=== PATIENT | female | born 1960 | race Caucasian/White ===

== ENCOUNTER 2017-05-11 09:47 | Emergency (ER) | payer OTHER ==
[2017-05-11 10:07] VITALS: BP 138/77
--- NOTE | 2017-05-11 10:24 | UC ---
Respiratory Complaint HPI - HPI Summary HPI Summary: 57F presents with cough for the past 5 days. She states she had a viral illness in [place] 3 weeks that resolved. The got back from vacation and she developed this illness. She admits to occasionally SOB. She denies any swelling or pain in her legs. She denies any chest pain. She denies any sore throat. She admits to sinus congestion and ear pressure. She admits to subjective fevers. - History of Current Complaint Chief Complaint: UCRespiratory Stated Complaint: COUGH,FEVER Time Seen by Provider: 05/11/17 10:13 Hx Last Menstrual Period: n/a Pain Intensity: 0 - Allergies/Home Medications Allergies/Adverse Reactions: Allergies Allergy/AdvReac Type Severity Reaction Status Date / Time Latex Allergy Mild Itching Verified 05/11/17 10:07 Penicillins Allergy Mild Rash Verified 05/11/17 10:07 Codeine AdvReac Severe "Put me Verified 05/11/17 10:07 out" Home Medications: Home Medications Cetirizine* [ZyrTEC 10 MG TAB*] 10 mg PO DAILY 05/11/17 [History Confirmed 05/11] Estradiol VAGINAL TAB(NF) [Vagifem(NF)] 10 mcg VA SEE INSTRUCTIONS 05/11/17 [ History Confirmed 05/11/17] PMH/Surg Hx/FS Hx/Imm Hx Cardiovascular History: Hypertension Respiratory History: Other Other Respiratory History: no asthma or COPD - Surgical History Surgical History: Yes Surgery Procedure, Year, and Place: hysterectomy; c4 c5 [id number], fusion and plating; laparoscopy 1988 - Family History Known Family History: Positive: Hypertension - Social History Alcohol Use: None Substance Use Type: None Smoking Status (MU): Never Smoked Tobacco Review of Systems Constitutional: Negative ENT: Nasal Discharge Respiratory: Shortness Of Breath, Cough All Other Systems Reviewed And Are Negative: Yes Physical Exam Triage Information Reviewed: Yes Appearance: Well-Appearing Vital Signs: Initial Vital Signs Temp 98.2 F 05/11/17 10:00 Pulse 82 05/11/17 10:00 Resp 18 05/11/17 10:00 BP 138/77 05/11/17 10:00 Pulse Ox 100 05/11/17 10:00 Vital Signs Reviewed: Yes Eyes: Positive: Conjunctiva Clear ENT: Positive: Normal ENT inspection, Pharynx normal, TMs normal - fluid behind ear Neck: Positive: Supple, Nontender, No Lymphadenopathy Respiratory: Positive: Lungs clear, Normal breath sounds Cardiovascular: Positive: RRR Abdomen Description: Positive: Nontender, Soft Bowel Sounds: Positive: Present Musculoskeletal Exam: Normal Neurological Exam: Normal Psychological Exam: Normal Skin Exam: Normal UC Diagnostic Evaluation - Laboratory O2 Sat by Pulse Oximetry: 100 Respiratory Course/Dx - Course Course Of Treatment: 57F presents with cough for the past 5 days. She states she had a viral illness in [facility] for 3 weeks that resolved. The got back from vacation and she developed this illness. She admits to occasionally SOB. She denies any swelling or pain in her legs. She denies any chest pain. She denies any sore throat. She admits to sinus congestion and ear pressure. She admits to subjective fevers. on exam lungs CTA. chest xray normal. medication reviewed. patient has diagnosis of HTN so can follow up with primary about blood pressure. will give inhaler for SOB and warned if anything changes to go to ED. patient understand and and agrees with plan. - Differential Dx/Diagnosis Differential Diagnosis/HQI/PQRI: Bronchitis, Laryngitis, Lower Resp Infection Provider Diagnoses: upper respiratory infection Discharge - Discharge Plan Condition: Good Disposition: HOME Prescriptions: Albuterol HFA INHALER* [Ventolin HFA Inhaler*] 1 puff INH Q4H PRN #1 mdi PRN Reason: Sob/Wheezing Patient Education Materials: Upper Respiratory Infection (ED) Referrals: [facility] PH[facility]ICIAN REFERRAL [Outside] Non Staff,Doctor [Primary Care Provider] - Additional Instructions: Use inhaler one puff every 4 hours for cough as needed Use humidifier or place warm bowls of water around the room for cough Take Tylenol for pain/fever every 6 hours Establish care with primary to follow up Return to ED if develop any new or worsening symptoms
--- NOTE | 2017-05-11 10:34 | RAD ---
HISTORY: Cough COMPARISONS: November 22, 2012 VIEWS: 4: Frontal dual-energy and lateral views of the chest. FINDINGS: CARDIOMEDIASTINAL SILHOUETTE: The cardiomediastinal silhouette is normal. JOSÉ MIGUEL: The josé miguel are normal. PLEURA: The costophrenic angles are sharp. No pleural abnormalities are noted. LUNG PARENCHYMA: There are calcified granulomas of the right lung. ABDOMEN: The upper abdomen is clear. There is no subphrenic gas. BONES AND SOFT TISSUES: The patient is status post anterior cervical fusion. OTHER: None. IMPRESSION: NO ACTIVE CARDIOPULMONARY DISEASE.
== END 2017-05-11 11:02 | disposition home or self-care (01) ==
LOC: UCCORT 09:47
DX: J06.9 Acute upper respiratory infection, unspecified (principal)
CPT/HCPCS: 71046; 99202; G0463

== ENCOUNTER 2017-06-28 09:17 | Emergency (ER) | payer OTHER ==
[2017-06-28 09:37] VITALS: BP 131/72
--- NOTE | 2017-06-28 09:55 | UC ---
Ear Complaint HPI - HPI Summary HPI Summary: RIGHT EAR PAIN X 3 DAYS RIGHT SIDE NECK PAIN / SWOLLEN NECK GLANDS + NASAL CONGESTION , SORE THROAT, NO FEVER, NO CHILLS, NO COUGH - History of Current Complaint Chief Complaint: UCEar Stated Complaint: RIGHT EAR/JAW PAIN Time Seen by Provider: 06/28/17 09:44 Hx Obtained From: Patient Hx Last Menstrual Period: n/a Onset/Duration: Gradual Onset, Lasting Days - 3, Still Present Severity Initially: Moderate Severity Currently: Moderate Pain Intensity: 7 Aggravating Factors: Nothing Alleviating Factors: Nothing Associated Signs/Symptoms: Positive: URI Symptoms. Negative: Discharge, Hearing Loss, Foreign Body Sensation, Trauma to Ear - Allergies/Home Medications Allergies/Adverse Reactions: Allergies Allergy/AdvReac Type Severity Reaction Status Date / Time Penicillins Allergy Intermediate Itching Verified 06/28/17 09:37 latex Allergy Itching Verified 06/28/17 09:37 codeine AdvReac Intermediate "puts me Verified 06/28/17 09:37 out" Home Medications: Home Medications Calcium Carbonate/Vitamin D2 [Oyster Shell Calcium-Vit D Tab] 1 tab PO BID 06/28 [History Confirmed 06/28/17] PMH/Surg Hx/FS Hx/Imm Hx Cardiovascular History: Hypertension - Surgical History Surgical History: Yes Surgery Procedure, Year, and Place: hysterectomy; c4 c5 [id number], fusion and plating; laparoscopy 1988 - Family History Known Family History: Positive: Hypertension - Social History Alcohol Use: None Substance Use Type: None Smoking Status (MU): Never Smoked Tobacco Review of Systems Constitutional: Negative Skin: Negative Eyes: Negative ENT: Sore Throat, Ear Ache, Nasal Discharge Respiratory: Negative Cardiovascular: Negative Gastrointestinal: Negative Genitourinary: Negative Motor: Negative Neurovascular: Negative Is Patient Immunocompromised?: No All Other Systems Reviewed And Are Negative: Yes Physical Exam Triage Information Reviewed: Yes Appearance: Well-Appearing, No Pain Distress, Well-Nourished Vital Signs: Initial Vital Signs Temp 97.8 F 06/28/17 09:26 Pulse 75 06/28/17 09:26 Resp 18 06/28/17 09:26 BP 131/72 06/28/17 09:26 Pulse Ox 99 06/28/17 09:26 Vital Signs Reviewed: Yes Eye Exam: Normal Eyes: Positive: Conjunctiva Clear ENT: Positive: Normal ENT inspection, Hearing grossly normal, Pharynx normal, TMs normal. Negative: TM bulging, TM dull, TM red, Tonsillar swelling, Tonsillar exudate Neck: Positive: Supple, Tenderness @, Enlarged Nodes @ Respiratory Exam: Normal Respiratory: Positive: Chest non-tender, Lungs clear, Normal breath sounds Cardiovascular: Positive: RRR, No Murmur, Pulses Normal Skin Exam: Normal Ear Complaint Course/Dx - Differential Dx/Diagnosis Provider Diagnoses: CERVICAL LYMPHADENOPATHY Discharge - Discharge Plan Condition: Stable Disposition: HOME Patient Education Materials: Lymphadenopathy (ED) Referrals: Gordon Gilliland MD [Primary Care Provider] - If Needed Additional Instructions: CONTINUE WITH REST, IBUPROFEN 400 MG EVERY 6 HRS NEEDED FOR PAIN AND INFLAMMATION FOLLOW UP NEEDED
== END 2017-06-28 09:59 | disposition home or self-care (01) ==
LOC: UCCORT 09:17
DX: R59.1 Generalized enlarged lymph nodes (principal); Z88.5 Allergy status to narcotic agent; Z88.0 Allergy status to penicillin; Z91.040 Latex allergy status
CPT/HCPCS: 99211; G0463

== ENCOUNTER 2017-09-08 15:26 | Emergency (ER) | payer OTHER ==
[2017-09-08 16:14] VITALS: BP 156/76
--- NOTE | 2017-09-08 16:43 | UC ---
Respiratory Complaint HPI - HPI Summary HPI Summary: 57 yo WF c/o URI sx of cough nasal congestion , low grade fevers x 5 days but now felt worsening right maxillary sinus pressure since yesterday, daughter also sick with sore throat and bronchitic sx w/ cough and fevers - History of Current Complaint Chief Complaint: UCGeneralIllness Stated Complaint: COUGH/CONGESTION Time Seen by Provider: 09/08/17 16:18 Hx Obtained From: Patient Hx Last Menstrual Period: n/a Onset/Duration: Sudden Onset Severity Initially: Moderate Severity Currently: Moderate Pain Intensity: 0 Character: Cough: Productive Aggravating Factors: Allergens Associated Signs And Symptoms: Positive: Negative - Allergies/Home Medications Allergies/Adverse Reactions: Allergies Allergy/AdvReac Type Severity Reaction Status Date / Time Penicillins Allergy Intermediate Itching Verified 09/08/17 16:12 latex Allergy Itching Verified 09/08/17 16:12 codeine AdvReac Intermediate "puts me Verified 09/08/17 16:12 out" Home Medications: Home Medications Multivitamins/Minerals TAB* [Theragran/minerals TAB*] 1 tab PO DAILY 09/08/17 [ History Confirmed 09/08/17] [place]-3 Fatty Acids/Fish Oil [[place] 3 1,000 mg Softgel] 1 cap PO DAILY 09/08/17 [History Confirmed 09/08/17] PMH/Surg Hx/FS Hx/Imm Hx - Additional Past Medical History Additional PMH: sinusitis Previously Healthy: Yes - Surgical History Surgical History: Yes Surgery Procedure, Year, and Place: hysterectomy; c4 c5 [id number], fusion and plating; laparoscopy 1988; right radial head fracture and ORIF - Family History Known Family History: Positive: Hypertension - Social History Alcohol Use: None Substance Use Type: None Smoking Status (MU): Never Smoked Tobacco Review of Systems Constitutional: Fever Skin: Negative Eyes: Negative ENT: Dental Pain - upper teeth, Sore Throat, Nasal Discharge, Sinus Congestion, Sinus Pain/Tenderness Respiratory: Cough Cardiovascular: Negative Gastrointestinal: Negative Genitourinary: Negative Motor: Negative Neurovascular: Negative Musculoskeletal: Negative Neurological: Negative Psychological: Negative All Other Systems Reviewed And Are Negative: Yes Physical Exam Triage Information Reviewed: Yes Appearance: No Pain Distress Vital Signs: Initial Vital Signs Temp 36.7 C 09/08/17 16:08 Pulse 73 09/08/17 16:08 Resp 14 09/08/17 16:08 BP 156/76 09/08/17 16:08 Pulse Ox 98 09/08/17 16:08 Eye Exam: Normal ENT: Positive: Nasal congestion, Nasal drainage, Sinus tenderness - right maxilla Dental Exam: Normal Neck exam: Normal Neck: Positive: 1 Respiratory Exam: Normal Cardiovascular Exam: Normal Abdominal Exam: Normal Musculoskeletal Exam: Normal Neurological Exam: Normal Psychological Exam: Normal Skin Exam: Normal UC Diagnostic Evaluation - Laboratory O2 Sat by Pulse Oximetry: 98 Respiratory Course/Dx - Differential Dx/Diagnosis Provider Diagnoses: right maxillary sinus infection. cough Discharge - Sign-Out/Discharge Documenting (check all that apply): Discharge/Admit/Transfer - Discharge Plan Condition: Stable Disposition: HOME Prescriptions: Azithromycin TAB* [Zithromax TAB (Z-CHESTER) 250 mg #6 tabs] 2 tab PO .TODAY, THEN 1 DAILY #1 chester Patient Education Materials: Sinusitis (ED) Referrals: Gordon Gilliland MD [Primary Care Provider] - - Billing Disposition and Condition Condition: STABLE Disposition: HOME
== END 2017-09-08 17:25 | disposition home or self-care (01) ==
LOC: UCCORT 15:26
DX: J32.0 Chronic maxillary sinusitis (principal); R05 Cough; Z88.5 Allergy status to narcotic agent; Z88.0 Allergy status to penicillin; Z91.040 Latex allergy status
CPT/HCPCS: 99212; G0463

== ENCOUNTER 2017-09-17 15:11 | Emergency (ER) | payer OTHER ==
[2017-09-17 15:53] VITALS: BP 145/70
--- NOTE | 2017-09-17 16:23 | UC ---
Eye Complaint HPI - HPI Summary HPI Summary: Pt c/o right eye pain, that began 2 days ago after removing contact lens. Pt has not been wearing contacts since onset of pain but has noted increase eye pain and photosensitivity. Denies vision changes. - History of Current Complaint Chief Complaint: UCEye Stated Complaint: EYE IRRITATION Time Seen by Provider: 09/17/17 15:52 Hx Obtained From: Patient Hx Last Menstrual Period: n/a ?: No Onset/Duration: Sudden Onset, Lasting Days, Still Present, Worse Since - onset Timing: Constant Severity Initially: Mild Severity Currently: Moderate Pain Intensity: 7 Location of Injury: Conjunctiva Character: Sharp, Dull Aggravating Factor(s): Contact Lens Alleviating Factor(s): Darkness Associated Signs And Symptoms: Positive: Photophobia, Drainage (Clear) - Risk Factors Penetrating Injury Risk Factor: Negative Globe Rupture Risk Factors: Negative Acute Glaucoma Risk Factors: Negative Optic Artery Occlusion Risk Factors: Negative - Allergies/Home Medications Allergies/Adverse Reactions: Allergies Allergy/AdvReac Type Severity Reaction Status Date / Time Penicillins Allergy Intermediate Itching Verified 09/08/17 16:12 latex Allergy Itching Verified 09/08/17 16:12 codeine AdvReac Intermediate "puts me Verified 09/08/17 16:12 out" PMH/Surg Hx/FS Hx/Imm Hx Previously Healthy: Yes - Surgical History Surgical History: Yes Surgery Procedure, Year, and Place: hysterectomy; c4 c5 [id number], fusion and plating C5-C6; laparoscopy 1988; right radial head fracture and ORIF - Family History Known Family History: Positive: Hypertension - Social History Occupation: Works From/At Home Lives: With Family Alcohol Use: None Substance Use Type: None Smoking Status (MU): Never Smoked Tobacco Have You Smoked in the Last Year: No Review of Systems Constitutional: Negative Skin: Negative Eyes: Photophobia ENT: Negative Respiratory: Negative Cardiovascular: Negative Gastrointestinal: Negative Genitourinary: Negative Motor: Negative Neurovascular: Negative Musculoskeletal: Negative Neurological: Negative Psychological: Negative Is Patient Immunocompromised?: No All Other Systems Reviewed And Are Negative: Yes Physical Exam Triage Information Reviewed: Yes Appearance: Well-Appearing Vital Signs: Initial Vital Signs Temp 97.3 F 09/17/17 15:46 Pulse 81 09/17/17 15:46 Resp 18 09/17/17 15:46 BP 145/70 09/17/17 15:46 Pulse Ox 99 09/17/17 15:46 Vital Signs Reviewed: Yes Eyes: Positive: Other: - at 12 oclock postion, ~ 1mm discolored, opaque circular area. ENT Exam: Normal Neck exam: Normal Respiratory Exam: Normal Musculoskeletal Exam: Normal Neurological Exam: Normal Psychological Exam: Normal Skin Exam: Normal Eye Complaint Course/Dx - Course Course Of Treatment: I spoke to Dr. Dewitt's office and they do not accpet the pt 's insurance I called Dr. Smith's office and pt has appointment for 11:45 am on 09/18/17. Pt was advised to place drops every 2 hours an duse eye ointment prior to bed. Pt was instructed that if symptoms worsen to go to [facility] for immediate evaluation and treatment. - Differential Dx/Diagnosis Differential Diagnosis/HQI/PQRI: Conjunctivitis, Corneal Abrasion, Other - corneal ulceration Provider Diagnoses: right eye pain. possible corneal ulceration Discharge - Sign-Out/Discharge Documenting (check all that apply): Discharge/Admit/Transfer - Discharge Plan Condition: Stable Disposition: HOME Prescriptions: Ofloxacin 0.3%(Ophth)(Nf) [Ocuflox OPTH 0.3%(NF)] 4 drop RIGHT EYE Q2H #1 btl Tobramycin 0.3% OPHTH.OINT* [Tobrex 0.3% OPHTH.OINT*] 1 applic RIGHT EYE BEDTIME #1 tube Patient Education Materials: Eye Pain (ED) Referrals: Beau Smith MD [Medical Doctor] - 09/18/17 11:45 am Gordon Gilliland MD [Primary Care Provider] - If Needed Additional Instructions: Please follow up with Dr. Smith tomorrow, 09/18/17 at 11:45 am . If your symptoms worsen, please seek care immediately at the closest Emergency Room. - Billing Disposition and Condition Condition: STABLE Disposition: Home
== END 2017-09-17 16:42 | disposition home or self-care (01) ==
LOC: UCCORT 15:11
DX: H57.11 Ocular pain, right eye (principal); Z88.5 Allergy status to narcotic agent; Z88.0 Allergy status to penicillin; Z91.040 Latex allergy status
CPT/HCPCS: 99212; G0463

== ENCOUNTER 2017-10-22 08:58 | Emergency (ER) | payer OTHER ==
[2017-10-22 09:29] VITALS: BP 146/69
--- NOTE | 2017-10-22 09:45 | UC ---
Dizzy HPI HPI Summary: Patient reports feeling dizzy since Sunday-3 days ago. She states that she often feels this way whenever she takes a cruise and exits the [place]. She describes it as a sense of being off balance. Yesterday she felt a little nausea with dizziness as well. She states that at onset she had a little bit of a pressure type headache which was relieved with Motrin. She notes that this is a typical type of headache for her. It was not abrupt or worst headache. Her symptoms worsen with change in position and she gets relief with rest. She denies any change in her vision and speech. She denies any numbness tingling or weakness to her arms or legs. She has no chest pain or short of breath. She does note that when she gets this way it makes her anxiety worse as well. - History Of Current Complaint Chief Complaint: UCDizziness Stated Complaint: DIZZY/NAUSEA *3DAYS Time Seen by Provider: 10/22/17 09:15 Hx Last Menstrual Period: 2009 Pain Intensity: 14 Associated Signs And Symptoms: Positive: Nausea. Negative: Tinnitus, Chest Pain , SOB, Palpitations, Visual Changes - Allergies/Home Medications Allergies/Adverse Reactions: Allergies Allergy/AdvReac Type Severity Reaction Status Date / Time Penicillins Allergy Intermediate Itching Verified 10/22/17 09:29 latex Allergy Itching Verified 10/22/17 09:29 codeine AdvReac Intermediate "puts me Verified 10/22/17 09:29 out" Home Medications: Home Medications Albuterol HFA INHALER* [Ventolin HFA Inhaler*] 1 - 2 puff INH Q4H PRN 10/22/17 [ History Confirmed 10/22/17] Omeprazole CAP* [Prilosec CAP* 20 MG] 20 mg PO DAILY 10/22/17 [History Confirmed 10/22/17] PMH/Surg Hx/FS Hx/Imm Hx - Additional Past Medical History Additional PMH: allergies Cardiovascular History: Hypertension Respiratory History: Asthma GI/ History: Gastroesophageal Reflux Psychological History: Anxiety - Surgical History Surgical History: Yes Surgery Procedure, Year, and Place: hysterectomy; c4 c5 [id number], fusion and plating C5-C6; laparoscopy 1988; right radial head fracture and ORIF - Family History Known Family History: Positive: Hypertension - Social History Occupation: Unemployed Lives: With Family Alcohol Use: None Substance Use Type: None Smoking Status (MU): Never Smoked Tobacco Have You Smoked in the Last Year: No - Immunization History Vaccination Up to Date: Yes Review of Systems Constitutional: Negative Skin: Negative Eyes: Negative ENT: Negative Respiratory: Negative Cardiovascular: Negative Gastrointestinal: Nausea Genitourinary: Negative Motor: Negative Neurovascular: Negative Musculoskeletal: Negative Neurological: Headache Psychological: Anxious Is Patient Immunocompromised?: No All Other Systems Reviewed And Are Negative: Yes Physical Exam Triage Information Reviewed: Yes Appearance: Well-Appearing Vital Signs: Initial Vital Signs Temp 99.1 F 10/22/17 09:16 Pulse 65 10/22/17 09:16 Resp 12 10/22/17 09:16 BP 146/69 10/22/17 09:16 Pulse Ox 100 10/22/17 09:16 Vital Signs Reviewed: Yes Eyes: Positive: Conjunctiva Clear, Other: - PERRL, EOMI. ENT: Positive: Pharynx normal, TMs normal. Negative: Nasal congestion, Nasal drainage Neck: Positive: Supple, Nontender, No Lymphadenopathy, Other: - No carotid bruits. Negative: Nuchal Rigidity Respiratory: Positive: Lungs clear, Normal breath sounds Cardiovascular: Positive: RRR, No Murmur, Pulses Normal Abdomen Description: Positive: Nontender, No Organomegaly, Soft Bowel Sounds: Positive: Present Musculoskeletal: Positive: ROM Intact Neurological: Positive: Alert, Other: - Patient is alert and oriented 3. Cranial nerves II through XII are grossly intact. She has 5 out of 5 strength and 2+ reflexes 4. She is normal steady gait. Negative Romberg and negative pronator drift. She heel toe walks with ease. Position change exacerbates her dizziness. Psychological: Positive: Age Appropriate Behavior Skin Exam: Normal Dizzy Course/Dx - Course Course Of Treatment: Patient describes a headache during this visit; however, it is a typical headache for her and resolved with Motrin. It was not abrupt or worse. Her neuro exam during this visit is reassuring. Nothing on her history or physical exam suggests cardiac pathology. She describes a history of similar episodes of dizziness in the past primarily related to getting off her shift. Nothing here is concerning for intracranial bleed or central vertigo. History and physical exam supports peripheral vertigo. We'll prescribe meclizine and close follow-up with the primary care provider for recheck. - Differential Dx/Diagnosis Provider Diagnoses: Dizziness Discharge - Sign-Out/Discharge Documenting (check all that apply): Discharge/Admit/Transfer - Discharge Plan Condition: Stable Disposition: HOME Prescriptions: Meclizine TAB* [Antivert 12.5 TAB*] 25 mg PO Q6H PRN #15 tab PRN Reason: Dizziness Patient Education Materials: Dizziness (ED) Referrals: Gordon Gilliland MD [Primary Care Provider] - 3 Days - Billing Disposition and Condition Condition: STABLE Disposition: Home
== END 2017-10-22 09:56 | disposition home or self-care (01) ==
LOC: UCCORT 08:58
DX: R42 Dizziness and giddiness (principal); Z88.0 Allergy status to penicillin; Z88.5 Allergy status to narcotic agent; J45.909 Unspecified asthma, uncomplicated; K21.9 Gastro-esophageal reflux disease without esophagitis
CPT/HCPCS: 99212; G0463